=== PATIENT | female | born 1930 | race Two or more races ===

== ENCOUNTER 2019-09-23 10:20 | Emergency (ER) | payer MEDICARE, MEDICAID ==
[~2019-09-23] VITALS: Ht 127 cm; Wt 54.4 kg
[~2019-09-23 10:20] MED LIST: LEVO50TA7 PO; LISI-275 PO; METF-370 PO; METO25TA5 PO
[2019-09-23 10:29] VITALS: BP 123/41
[2019-09-23] MEDS ORDERED: cefTRIAXone SOD 1,000 MG VL IM ONE (12:15)
== END 2019-09-23 12:30 | disposition home or self-care (01) ==
LOC: ER 10:20
DX: J02.9 Acute pharyngitis, unspecified (principal); J20.9 Acute bronchitis, unspecified; E11.9 Type 2 diabetes mellitus without complications; I10 Essential (primary) hypertension; Z79.899 Other long term (current) drug therapy; Z79.84 Long term (current) use of oral hypoglycemic drugs
CPT/HCPCS: 71046; 81002; 96372; 99283; J0696